=== PATIENT | male | born 1995 | race Two or more races ===

== ENCOUNTER 2017-02-19 13:15 | Emergency (ER) | payer OTHER ==
[~2017-02-19] VITALS: Ht 185.4 cm; Wt 86.2 kg
[2017-02-19 13:32] VITALS: BP 138/66
[2017-02-19] MEDS ORDERED: IBUPROFEN 600 MG TAB PO ONE (15:00)
== END 2017-02-19 15:28 | disposition home or self-care (01) ==
LOC: ER 13:15
DX: S00.03XA Contusion of scalp, initial encounter (principal); S09.90XA Unspecified injury of head, initial encounter; S50.312A Abrasion of left elbow, initial encounter; Y08.89XA Assault by other specified means, initial encounter; Y93.89 Activity, other specified; Y99.8 Other external cause status; Y92.810 Car as the place of occurrence of the external cause
CPT/HCPCS: 70450